=== PATIENT | male | born 1985 | race African-American/Black ===

== ENCOUNTER 2023-04-09 05:34 | Emergency (ER) | payer BC ==
[2023-04-09] MEDS ORDERED: NA CHLORIDE 0.9% 1,000 ML ONE (06:22)
[2023-04-09] MEDS ORDERED: DIAZEPAM 10 MG/2 ML INJ SYRINGE ONE (06:22)
[2023-04-09] MEDS ORDERED: METOCLOPRAMIDE 10 MG/2mL INJ ONE (06:22)
[2023-04-09] MEDS ORDERED: NA CHLORIDE 0.9% 50 ML ONE (06:27)
[2023-04-09] MEDS ORDERED: PROMETHAZINE INJ 25 MG/ML AMP ONE (06:38)
[2023-04-09] MEDS ORDERED: CHLORPROMAZINE 25 MG TAB PO ONE (06:43)
[2023-04-09 06:57] LABS: Absolute Lymphocytes (CBC) 1.9 K/uL (0.7-4.9); Hematocrit 47.2 % (39.6-49.0); Lymphocytes % 17.8 % (15.3-44.8); MCV 87.5 fL (80-100); MPV 8.1 fL (7.6-11.3)
[2023-04-09 08:13] LABS: Potassium 4.2 mEq/L (3.5-5.1)
--- NOTE | 2023-04-09 08:20 | EDPHYS ---
Physician Documentation [facility] Name: Jd Cabral Age: 37 yrs Sex: Male : 1985 Arrival Date: 04/09/2023 Time: 05:34 Bed 4 Private MD: ED Physician Nick Lake HPI: 04/09 06:31 This 37 yrs old Black Male presents to ER via Ambulatory with complaints of HICCUPS sp4 X4DAYS. 08:07 Patient states he had dental extraction left lower tooth #16 and implant as well 4 days sp4 ago after that he has developed persistent hiccups. Patient was in and out of the emergency department yesterday was given intramuscular Thorazine which stopped hiccups but hiccups have recurred. Patient states he has not been able to sleep for the past 4 days and is very fatigued. Patient's dentist has attempted to stop pickups via p.o. gabapentin, p.o. Zofran, p.o. Reglan, and p.o. baclofen, with much success. Patient also takes [place] 7.5 as needed for pain and clindamycin p.o. antibiotic. . Historical: - Allergies: 06:00 No Known Allergies; kd3 - Home Meds: 08:50 None [Active]; jl7 - PMHx: 08:50 None; jl7 - PSHx: 08:50 Dental implant; jl7 - Immunization history:: Adult Immunizations up to date. - Social history:: Smoking status: Patient denies any tobacco usage or history of. - Family history:: not pertinent. ROS: 08:07 Constitutional: Negative for fever, chills, and weight loss, positive for persistent sp4 hiccups Eyes: Negative for injury, pain, redness, and discharge, ENT: Negative for injury, pain, and discharge, Neck: Negative for injury, pain, and swelling, Cardiovascular: Negative for chest pain, palpitations, and edema, Respiratory: Negative for shortness of breath, cough, wheezing, and pleuritic chest pain, Abdomen/GI: Negative for abdominal pain, nausea, vomiting, diarrhea, and constipation, positive for persistent hiccups Back: Negative for injury and pain, : Negative for injury, bleeding, discharge, and swelling, MS/Extremity: Negative for injury and deformity, Skin: Negative for injury, rash, and discoloration, Neuro: Negative for headache, weakness, numbness, tingling, and seizure, Psych: Negative for depression, anxiety, Allergy/Immunology: Negative for hives, rash, and allergies Endocrine: Negative for neck swelling, polydipsia, polyuria, polyphagia, and weight changes Hematologic/Lymphatic: Negative for swollen nodes, abnormal bleeding, and unusual bruising Exam: 08:07 Constitutional: This is a well developed, well nourished patient who is awake, alert, sp4 and in no acute distress. Head/Face: Normocephalic, atraumatic. Eyes: Pupils equal round and reactive to light, extra-ocular motions intact. Lids and lashes normal. Conjunctiva and sclera are not injected. Cornea within normal limits. Periorbital areas with no swelling, redness, or edema. ENT: Nares patent. No nasal discharge, no septal abnormalities noted. Tympanic membranes are normal and external auditory canals are clear. Oropharynx with no redness, swelling, or masses, exudates, or evidence of obstruction, uvula midline. Mucous membranes moist. Neck: Trachea midline, no thyromegaly or masses palpated, and no cervical lymphadenopathy. Supple, full range of motion without nuchal rigidity, or vertebral point tenderness. No Meningismus. Chest/axilla: Normal chest wall appearance and motion. Nontender with no deformity. No lesions are appreciated. Cardiovascular: Regular rate and rhythm with a normal S1 and S2. No gallops, murmurs, or rubs. Normal PMI, no JVD. No pulse deficits. Respiratory: Lungs have equal breath sounds bilaterally, clear to auscultation and percussion. No rales, rhonchi or wheezes noted. No increased work of breathing, no retractions or nasal flaring. Abdomen/GI: Soft, non-tender, with normal bowel sounds. No distension or tympany. No guarding or rebound. No evidence of tenderness throughout. Persistent singultus Back: No spinal tenderness. No costovertebral tenderness. Skin: Warm, dry with normal turgor. Normal color with no rashes, no lesions, and no evidence of cellulitis. MS/ Extremity: Pulses equal, no cyanosis. Neurovascular intact. Full, normal range of motion. Neuro: Awake and alert, GCS 15, oriented to person, place, time, and situation. Cranial nerves II-XII grossly intact. Motor strength 5/5 in all extremities. Sensory grossly intact. Psych: Awake, alert, with orientation to person, place and time. Behavior, mood, and affect are within normal limits Vital Signs: 05:56 Pulse 84; Resp 19; Temp 98.6(TE); Pulse Ox 100% ; Weight 99.79 kg; Height 6 ft. 3 in. ; kd3 05:57 BP 134 / 98; kd3 06:56 BP 134 / 98; Pulse 89; Resp 16; Pulse Ox 99% on R/A; jb4 07:39 BP 148 / 93; Pulse 95; Resp 14; Pulse Ox 99% on R/A; Pain 0/10; ss 09:56 BP 123 / 72; Pulse 96; Resp 14; Pulse Ox 100% on R/A; ss 10:59 BP 133 / 85; Pulse 92; Resp 16; Pulse Ox 99% on R/A; ss 05:56 Body Mass Index 27.50 (99.79 kg, 190.5 cm) kd3 07:39 Pain Scale: Adult ss MDM: 06:10 Patient medically screened. sp4 08:17 Differential Diagnosis Acute singultus. Data reviewed: vital signs, nurses notes, lab sp4 test result(s), radiologic studies, plain films. ED course: After IV Valium, IV Reglan, and IV Phenergan, also p.o. Thorazine, hiccups have resolved. ED course: Patient's dentist Dr. Martinez requested that patient is monitored here for several hours. Patient care was transferred to Dr. Lake for further monitoring patient may be discharged presumptively at 10 AM if there is no recurrence of hiccups. 08:28 Management of patient was discussed with the following: Field Examiner: Dr Martinez. I ms3 considered the following discharge prescriptions or medication management in the emergency department Medications were administered in the Emergency Department. See MAR. Counseling: I had a detailed discussion with the patient and/or guardian regarding: the historical points, exam findings, and any diagnostic results supporting the discharge/admit diagnosis, the need for outpatient follow up, to return to the emergency department if symptoms worsen or persist or if there are any questions or concerns that arise at home. Transition of care: Care assumed from Amrik Pizarro MD. 08:31 Response to treatment: the patient's symptoms have resolved after treatment, Hiccups ms3 have resolved. Pt a/o x4, and as a result, I will discharge patient. Special discussion: I discussed with the patient/guardian in detail that at this point there is no indication for admission to the hospital. It is understood, however, that if the symptoms persist or worsen the patient needs to return immediately for re-evaluation. 09:11 ED course: At discharge patient hiccups returned. Discussed case with Dr Wen and ms3 he recommends MRI stroke protocol. If negative patient can be discharged.. 04/09 06:27 Order name: Basic Metabolic Panel; Complete Time: 08:17 sp4 04/09 06:27 Order name: CBC with Diff; Complete Time: 08:10 sp4 04/09 06:27 Order name: XRAY Chest (1 view) 4 04/09 10:25 Order name: Brain Wo Cont; Complete Time: 11:00 EDMS 04/09 05:58 Order name: Saline Lock; Complete Time: 06:28 sp4 04/09 06:27 Order name: IV Saline Lock; Complete Time: 06:44 sp04/09 06:27 Order name: Labs collected and sent; Complete Time: 06:44 sp4 04/09 06:27 Order name: O2 Per Protocol; Complete Time: 06:44 sp04/09 06:27 Order name: O2 Sat Monitoring; Complete Time: 06:44 sp04/09 07:05 Order name: Misc. Order: REDRAW GREEN TOP; Complete Time: 07:39 rv1 Administered Medications: 06:28 Drug: metoCLOPramide IVP 20 mg Route: IVP; Site: left antecubital; jb4 07:39 Follow up: Response: No adverse reaction ss 06:28 Drug: Diazepam IVP 5 mg Route: IVP; Site: left antecubital; jb4 07:39 Follow up: Response: No adverse reaction ss 06:29 Not Given (MEdication unavailablee): Prochlorperazine IVP 10 mg IVP once jb4 06:29 Drug: NS 0.9% IV 1000 ml Route: IV; Rate: 1 bolus; Site: left antecubital; jb4 07:39 Follow up: IV Status: Completed infusion; IV Intake: 1000ml ss 06:44 Drug: Promethazine IVP 25 mg Route: IVP; Site: left antecubital; as6 07:39 Follow up: Response: No adverse reaction ss 06:44 Drug: thorazine 25 mg Route: PO; jb4 07:39 Follow up: Response: No adverse reaction ss 09:53 Drug: Midazolam IVP or IV 2 mg Route: IVP; Site: left antecubital; ss Disposition Summary: 04/09/23 11:04 Discharge Ordered Location: Home(04/09/23 11:04) ms3 Condition: Stable(04/09/23 11:04) ms3 Diagnosis - Hiccough(04/09/23 11:04) ms3 Followup: ms3 - With: Private Physician - When: 2 - 3 days - Reason: Recheck today's complaints Followup: ms3 - With: Hayden Wen MD - When: 2 - 3 days - Reason: Recheck today's complaints Discharge Instructions: - Discharge Summary Sheet ms3 - Hiccups ms3 Forms: - Medication Reconciliation Form ms3 - Thank You Letter ms3 - Antibiotic Education ms3 - Prescription Opioid Use ms3 Prescriptions: - Chlorpromazine 25 mg Oral Tablet - take 1 tablet by ORAL route every 8 hours; 30 tablet; Refills: 0, Product ms3 Selection Permitted Signatures: Dispatcher [employer] Ayanna Wagner RN RN Raman Briceño RN RN slim4 Sanjana Santoro RN RN jl7 Nick Lake DO DO ms3 Tejas Alfaro RN RILEY as6 Maura Beyer RN RN kd3 Ramandeep Sawyer rv1 Amrik Pizarro MD MD sp4 Corrections: (The following items were deleted from the chart) 08:21 08:20 Home sp4 sp4 08:21 08:20 new sp4 sp4 08:21 08:20 have improved sp4 sp4 08:21 08:20 Stable sp4 sp4 08:21 08:20 Acute singultus, persistent hiccups sp4 sp4 09:09 08:27 Home ms3 ms3 09:09 08:27 Stable ms3 ms3 09:09 08:27 Hiccough ms3 ms3 09:09 08:27 Elevated blood-pressure reading, without diagnosis of hypertension ms3 ms3 10:25 09:10 MR STROKE PROTOCOL+MRI.RAD.BRZ ordered. EDMS EDMS
--- NOTE | 2023-04-09 08:20 | ER ---
Nurse's Notes [facility] Name: Jd Cabral Age: 37 yrs Sex: Male : 1985 Arrival Date: 04/09/2023 Time: 05:34 Bed 4 Private MD: Diagnosis: Hiccough Presentation: 04/09 05:57 Chief complaint: Patient states: I have had the hiccups since morning. kd3 Saturday i had a dental implant done. I have been to an urgent care and another ER. The oral surgeon, Dr. martinez, told him that if it had continued to go to the ER again, so that's why we are here this morning.. I cannot keep anything down or sleep. Coronavirus screen: Vaccine status: Patient reports receiving the 2nd dose of the covid vaccine. Ebola Screen: No symptoms or risks identified at this time. Initial Sepsis Screen: Does the patient meet any 2 criteria? No. Patient's initial sepsis screen is negative. Does the patient have a suspected source of infection? No. Patient's initial sepsis screen is negative. Risk Assessment: Do you want to hurt yourself or someone else? Patient reports no desire to harm self or others. Onset of symptoms was March 05, 2023. 05:57 Method Of Arrival: Ambulatory kd3 05:57 Acuity: CARLOS 3 kd3 Triage Assessment: 06:00 General: Appears uncomfortable, Behavior is calm, cooperative. Pain: Complains of pain kd3 in diaphragm. Historical: - Allergies: 06:00 No Known Allergies; kd3 - Home Meds: 08:50 None [Active]; jl7 - PMHx: 08:50 None; jl7 - PSHx: 08:50 Dental implant; jl7 - Immunization history:: Adult Immunizations up to date. - Social history:: Smoking status: Patient denies any tobacco usage or history of. - Family history:: not pertinent. Screenin:40 [facility] ED Fall Risk Assessment (Adult) History of falling in the last 3 months, ss including since admission No falls in past 3 months (0 pts). Abuse screen: Denies threats or abuse. Denies injuries from another. Nutritional screening: No deficits noted. Tuberculosis screening: Never had TB. Assessment: 06:00 General: Appears in no apparent distress. uncomfortable, Behavior is calm, cooperative, jb4 appropriate for age, PT reports uncontrollable hiccups for the past 4 days, has seen multiple providers and has had no relief.. Pain: Complains of pain in abdomen Pain does not radiate. Pain currently is 7 out of 10 on a pain scale. Neuro: Level of Consciousness is awake, alert, obeys commands, Oriented to person, place, time, situation. Cardiovascular: Patient's skin is warm and dry. Respiratory: Airway is patent Respiratory effort is even, unlabored, Respiratory pattern is regular, symmetrical. GI: Abdomen is flat, non-distended. : No signs and/or symptoms were reported regarding the genitourinary system. EENT: No signs and/or symptoms were reported regarding the EENT system. Derm: Skin is intact, Skin is pink, warm \T\ dry. Musculoskeletal: Circulation, motion, and sensation intact. Range of motion: intact in all extremities. 06:56 Reassessment: Patient appears in no apparent distress at this time. Patient and/or jb4 family updated on plan of care and expected duration. Pain level reassessed. Patient is alert, oriented x 3, equal unlabored respirations, skin warm/dry/pink. 07:40 General: Appears in no apparent distress. comfortable, Behavior is calm, cooperative, ss Pt is resting at this time with his eyes closed. RR even and unlabored. Parents remain at bedside. Went into room for lab draw and patient awakens easily with verbal stimuli. chemistry recollected and sent at this time. Lights dimmed for comfort. Call light within reach. Derm: Skin is intact, is healthy with good turgor, Skin is pink, warm \T\ dry. normal. Musculoskeletal: Range of motion: Swelling absent. 08:39 Reassessment: Patient appears in no apparent distress at this time. Patient denies pain ss at this time. Patient states feeling better. Patient states symptoms have improved. 08:46 Reassessment: Attempted to discharge pt, removed IV, assisted to bathroom via jl7 wheelchair and pt began hiccuping again Dr. Lake notified and gave VO to hold discharge. 08:50 Reassessment: Pt reports recent dental implant pre-hiccups. Hiccups began post jl7 procedure with conscious sedation. 09:55 Reassessment: Versed given just prior to transportation to MRI as ordered by Dr. Lake to help with hiccups. Pt drowsy, but able to communicate verbally with staff. RR even and unlabored. Hiccups still noted at this time every 5-10 seconds. 11:00 Reassessment: Patient appears in no apparent distress at this time. MRI results back. ss Awaiting disposition. Vital Signs: 05:56 Pulse 84; Resp 19; Temp 98.6(TE); Pulse Ox 100% ; Weight 99.79 kg; Height 6 ft. 3 in. ; kd3 05:57 BP 134 / 98; kd3 06:56 BP 134 / 98; Pulse 89; Resp 16; Pulse Ox 99% on R/A; jb4 07:39 BP 148 / 93; Pulse 95; Resp 14; Pulse Ox 99% on R/A; Pain 0/10; ss 09:56 BP 123 / 72; Pulse 96; Resp 14; Pulse Ox 100% on R/A; ss 10:59 BP 133 / 85; Pulse 92; Resp 16; Pulse Ox 99% on R/A; ss 05:56 Body Mass Index 27.50 (99.79 kg, 190.5 cm) kd3 07:39 Pain Scale: Adult ss ED Course: 05:38 Patient arrived in ED. ag3 05:57 Amrik Pizarro MD is Attending Physician. sp4 06:00 Triage completed. kd3 06:00 Arm band placed on right wrist. kd3 06:38 XRAY Chest (1 view) In Process Unspecified. EDMS 06:44 Basic Metabolic Panel Sent. as6 06:44 CBC with Diff Sent. as6 06:55 Raman Taylor, RN is Primary Nurse. jb4 07:40 Patient has correct armband on for positive identification. ss 07:59 Attending Physician role handed off by Amrik Pizarro MD ms3 07:59 Nick Lake DO is Attending Physician. ms3 08:19 Josh Martinez DDS is Referral Physician. sp4 08:39 No provider procedures requiring assistance completed. IV discontinued, intact, ss bleeding controlled, No redness/swelling at site. Pressure dressing applied. 09:54 Inserted saline lock: 22 gauge in left antecubital area, using aseptic technique. ss 10:25 Brain Wo Cont In Process Unspecified. EDMS 11:03 Hayden Wen MD is Referral Physician. ms3 Administered Medications: 06:28 Drug: metoCLOPramide IVP 20 mg Route: IVP; Site: left antecubital; jb4 07:39 Follow up: Response: No adverse reaction ss 06:28 Drug: Diazepam IVP 5 mg Route: IVP; Site: left antecubital; jb4 07:39 Follow up: Response: No adverse reaction ss 06:29 Not Given (MEdication unavailablee): Prochlorperazine IVP 10 mg IVP once jb4 06:29 Drug: NS 0.9% IV 1000 ml Route: IV; Rate: 1 bolus; Site: left antecubital; jb4 07:39 Follow up: IV Status: Completed infusion; IV Intake: 1000ml ss 06:44 Drug: Promethazine IVP 25 mg Route: IVP; Site: left antecubital; as6 07:39 Follow up: Response: No adverse reaction ss 06:44 Drug: thorazine 25 mg Route: PO; jb4 07:39 Follow up: Response: No adverse reaction ss 09:53 Drug: Midazolam IVP or IV 2 mg Route: IVP; Site: left antecubital; ss Medication: 07:40 VIS not applicable for this client. ss Intake: 07:39 IV: 1000ml; Total: 1000ml. ss Outcome: 08:20 Discharge ordered by . sp4 08:27 Discharge ordered by . ms3 11:04 Discharge ordered by . ms3 11:36 Patient left the ED. zm Signatures: Dispatcher [employer] EDMS Ayanna Wallace RN RN ss Raman Taylor RN RN jb4 Sanjana Santoro RN RN lacy7 Jessica Brito Nick Escobar DO DO ms3 Tejas Alfaro RN RN as6 Maura Beyer RN RN wanda3 Donna Nair Sergey, MD MD sp4
[2023-04-09] MEDS ORDERED: MIDAZOLAM HCL 2 MG/2 ML INJ ONE (09:55)
--- NOTE | 2023-04-09 10:31 | RAD REPORT ---
EXAM DESCRIPTION: X-ray single view chest. CLINICAL HISTORY: 37 years Male, COUGH COMPARISON: None. TECHNIQUE: Single portable x-ray view of the chest performed on 04/09/2023 at 6:33 AM FINDINGS: The lungs are well expanded and are clear. There is no evidence of a pneumothorax. The cardiac silhouette is prominent and may be accentuated by the portable technique. The mediastinal contours are normal. No acute osseous abnormality is identified. No acute soft tissue abnormalities are seen. Lines and tubes: None. Free air: None IMPRESSION: No evidence of acute intrathoracic disease. Electronically signed by: Abril Mejía DO 04/09/2023 6:46 AM CDT Due to temporary technical issues with the PACS/Fluency reporting system, reports are being signed by the in house radiologists without review as a courtesy to insure prompt reporting. The interpreting radiologist is fully responsible for the content of the report.
--- NOTE | 2023-04-09 10:51 | RAD REPORT ---
EXAM DESCRIPTION: MRI - Brain Wo Cont - 04/09/2023 10:23 am CLINICAL HISTORY: Hiccups Headache, drowsiness, involuntary motion. COMPARISON: No comparisons TECHNIQUE: Multi-sequence, multiplanar MR imaging of the brain was performed without contrast. FINDINGS: Mild motion degradation is present No intracranial hemorrhage, hydrocephalus or extra-axia l fluid collections. No edema or shift of midline structures. No findings to suspect brain mass. DWI is negative for acute CVA. Midline structures are normally formed. Mastoid air cells and paranasal sinuses are clear. IMPRESSION: No acute or pathologic intracranial abnormalities. Examination is mildly degraded by motion artifact.
[2023-04-09 11:58] VITALS: TEMP 98.6
[2023-04-09 12:06] VITALS: BP 133/85; O2SAT 99
== END 2023-04-09 11:36 | disposition home or self-care (01) ==
LOC: ER 05:34
DX: R06.6 Hiccough (principal); Z98.818 Other dental procedure status
CPT/HCPCS: 96361; 85025; 80048; 36415; 71045; 70551; 96375; 96374; 99284; J2550; Q0161; J2765; J2250; J3360; J7030

== ENCOUNTER 2023-04-09 15:30 | Inpatient (IN) | payer BC ==
--- OUTSIDE RECORDS SUMMARY | 2023-04-09 15:33 | XMS REPORT | Continuity of Care Document ---
:1985 Author Organization [facility] t Address [address] [place] [address] [address] [place] [address] Care Team Providers Name Role Phone NABIL MENDOZA Attending Clinician Unavailable Hernando Attending Clinician Unavailable Hernando Admitting Clinician Unavailable Payers Payer Name Policy Type Policy Number Effective Date Expiration Date [employer] - NAP - [id number] 2012 00:00:00 CHOICE (POS II) Problems This patient has no known problems. Allergies, Adverse Reactions, Alerts This patient has no known allergies or adverse reactions. Medications This patient has no known medications. Procedures This patient has no known procedures. Encounters Start End Encounter Admission Attending Care Care Encounter Source Date/Time Date/Time Type Type Clinicians Facility Department ID 2023-04-07 2023-04-07 Emergency E NABIL MENDOZA FB FB [id number] FB 09:46:00 14:42:00 2020-10-19 2020-10-19 Outpatient [id number] [place] 02:23:00 02:23:00 [id number] Results This patient has no known results.
[2023-04-09] MEDS ORDERED: HALOPERIDOL LACT 5 MG/ML INJ ONE (15:59)
[2023-04-09] MEDS ORDERED: MAGNESIUM SULFATE 1 gm IVPB 1 GM/100 ML BAG IV ONE (16:09)
[2023-04-09] MEDS ORDERED: NA CHLORIDE 0.9% 1,000 ML ONE (16:09)
[2023-04-09] MEDS ORDERED: KETAMINE HCL IN 0.9 % NACL 50 MG/5 ML SYRINGE IV ONE (17:57)
--- NOTE | 2023-04-09 18:19 | RAD REPORT ---
EXAM DESCRIPTION: CT - Chest Abdomen Pelvis W Cont - 04/09/2023 6:00 pm CLINICAL HISTORY: Chest and abdominal pain/intractable hiccups COMPARISON: none TECHNIQUE: Computed axial tomography of the chest, abdomen and pelvis was obtained. 100 cc Isovue-30 0 was administered intravenously. Oral contrast was not requested. This limits evaluation of bowel. All CT scans are performed using dose optimization technique as appropriate and may include automated exposure control or mA/KV adjustment according to patient size. FINDINGS: There is poor opacification of the vessels probably related to the timing of the contrast administration being altered due to the intractable hiccups. This does limit evaluation of mediastinu m, solid organs, nayeli and vessels. Many of the images are degraded by the motion artifact. Lungs are clear No mediastinal or hilar lymphadenopathy. No pleural effusion. No pericardial effusion. The wall of the distal esophagus appears thickened Liver, spleen, pancreas, adrenals and kidneys appear unremarkable No evidence of diverticulitis IMPRESSION: Wall of the distal esophagus appears thickened which may be secondary to incomplete dist ention or pathology such as inflammation
[2023-04-09] MEDS ORDERED: MAGNES/ALUMIN/SIMET 30ML UCUP ONE (18:34)
[2023-04-09] MEDS ORDERED: PANTOPRAZOLE 40 MG INJ ONE (18:34)
[2023-04-09] MEDS ORDERED: LIDOCAINE VISCOUS 2% SOLN 15 ML UDC ONE (18:35)
--- NOTE | 2023-04-09 18:41 | EDPHYS ---
Physician Documentation [facility] Name: Jd Cabral Age: 37 yrs Sex: Male : 1985 Arrival Date: 04/09/2023 Time: 15:30 Bed 7 Private MD: ED Physician Andrés Lofton HPI: 04/09 15:56 This 37 yrs old Male presents to ER via Ambulatory with complaints of HICCUPS. rn 15:56 Pt present for 3rd visit for hiccups. 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 Medication has not really helped.. Onset: The symptoms/episode began/occurred 5 day(s) ago. Severity of symptoms: At their worst the symptoms were moderate in the emergency department the symptoms are unchanged. The patient has not experienced similar symptoms in the past. The patient has been recently seen by a physician:. Historical: - Allergies: 15:39 No Known Allergies; ss - Home Meds: 16:01 None [Active]; jl7 - PMHx: 16:01 None; jl7 - PSHx: 15:39 Dental implant; ss - Immunization history:: Client reports receiving the 2nd dose of the Covid vaccine. - Social history:: Smoking status: Patient denies any tobacco usage or history of. - Family history:: not pertinent. - Hospitalizations: : No recent hospitalization is reported. ROS: 15:56 Constitutional: Negative for fever, chills, and weight loss, Respiratory: Negative for rn shortness of breath, cough, wheezing, and pleuritic chest pain, Abdomen/GI: Negative for abdominal pain, diarrhea, and constipation. Exam: 15:56 Constitutional: This is a well developed, well nourished patient who is awake, alert, rn appears frustrated and hiccups every 3-5 seconds. Cardiovascular: Regular rate and rhythm. No pulse deficits. Respiratory: No increased work of breathing, no retractions or nasal flaring. Abdomen/GI: Soft, non-tender Skin: Warm, dry Neuro: Awake and alert, GCS 15 Vital Signs: 15:37 BP 142 / 92; Pulse 103; Resp 18; Temp 99(O); Pulse Ox 99% on R/A; Weight 99.79 kg; ss Height 6 ft. 3 in. ; Pain 9/10; 16:39 BP 119 / 72; Pulse 88; Resp 14; Pulse Ox 100% on R/A; ss 18:21 BP 137 / 81; Pulse 128; Resp 15; Pulse Ox 98% ; jl7 19:46 BP 120 / 50; Pulse Ox 98% on R/A; kl 15:37 Body Mass Index 27.50 (99.79 kg, 190.5 cm) ss 15:37 Pain Scale: Adult ss MDM: 15:36 Patient medically screened. rn 15:55 ED course: Put patient through breath stacking techniques and hiccups stopped. Will rn continue to observe and try low dose haldol as well. . 17:53 ED course: Consulted with Dr. Martinez, has been trying to help this man outpt, requests tornado chaser for intractable hiccoughs as patient is not able to eat or drink and required IV hydration during this last visit. Is now patient's 4th visit for this problem and family visibly concerned and distraught at the thought of going home again.. 18:38 Differential Diagnosis hiccups, dehydration, esophagitis. Data reviewed: vital signs, rn nurses notes, old medical records, radiologic studies, CT scan, and as a result, I will admit patient. Counseling: I had a detailed discussion with the patient and/or guardian regarding: the historical points, exam findings, and any diagnostic results supporting the discharge/admit diagnosis, radiology results, the need for further work-up and treatment in the hospital. Response to treatment: There is no appreciated change of the patient's symptoms at this time, and as a result, I will admit patient. 04/09 17:24 Order name: CT Chest, Abdomen, Pelvis - W/Contrast; Complete Time: 18:23 rn 04/09 16:00 Order name: IV Start; Complete Time: 16:35 rn Administered Medications: 15:55 Drug: HALdol (as decanoate) IM 2.5 mg Route: IM; Site: right deltoid; jl7 18:40 Follow up: Response: No adverse reaction; Marked relief of symptoms ss 16:15 Drug: NS 0.9% IV 1000 ml Route: IV; Rate: 1000 ml; Site: right forearm; jl7 16:15 Drug: Magnesium Sulfate IVPB 1 grams Route: IVPB; Infused Over: 1 hrs; Site: right jl7 forearm; 16:57 Follow up: IV Status: Completed infusion ss 17:50 Drug: Ketamine IVP 19.958 mg Route: IVP; Site: right forearm; jl7 18:00 Follow up: Response: No adverse reaction; No change in condition jl7 17:55 Drug: Ketamine IVP 10 mg Route: IVP; Site: right forearm; jl7 18:20 Follow up: Response: No adverse reaction; No change in condition jl7 18:40 Drug: Pantoprazole IVP 40 mg Route: IVP; Site: right antecubital; ss 19:19 Follow up: Response: No adverse reaction jl7 18:40 Drug: GI Cocktail without - (Maalox PO Suspension 30 ml, Lidocaine Mucous ss Membrane Liquid 2 % 15 ml) Route: PO; Disposition Summary: 04/09/23 18:40 Hospitalization Ordered Hospitalization Status: Observation rn Provider: Robinson Lofton rn Location: Telemetry/MedSurg (observation) rn Condition: Stable rn Problem: an ongoing problem rn Symptoms: are unchanged rn Bed/Room Type: Standard rn Room Assignment: [facility](04/09/23 19:21) Diagnosis - Hiccough - Intractable rn - Dehydration rn - Unable to tolerate PO nursery rn Instructions: - Discharge Summary Sheet rn - Hiccups rn Forms: - Medication Reconciliation Form rn - SBAR form rn Signatures: Dispatcher [employer] Nina Breen RN Andrés Vidal MD MD rn Smirch, Shelby, RN RN Sanjana Agosto RN RN jl7 Corrections: (The following items were deleted from the chart) 19:21 18:40 rn sharonda
--- NOTE | 2023-04-09 18:41 | ER ---
Nurse's Notes [facility] Name: Jd Cabral Age: 37 yrs Sex: Male : 1985 Arrival Date: 04/09/2023 Time: 15:30 Bed 7 Private MD: Diagnosis: Hiccough-Intractable;Dehydration;Unable to tolerate PO Presentation: 04/09 15:37 Chief complaint: Patient states: persistent hiccups x 5 days. Pt seen in ER earlier, ss hiccups stopped, but started back up again and the prescription is not helping. Coronavirus screen: Client denies travel out of the [place] in the last 14 days. Ebola Screen: Patient denies exposure to infectious person. Patient denies travel to an Ebola-affected area in the 21 days before illness onset. Initial Sepsis Screen: Does the patient meet any 2 criteria? No. Patient's initial sepsis screen is negative. Does the patient have a suspected source of infection? No. Patient's initial sepsis screen is negative. Risk Assessment: Do you want to hurt yourself or someone else? Patient reports no desire to harm self or others. Onset of symptoms was April 04, 2023. 15:37 Method Of Arrival: Ambulatory ss 15:37 Acuity: CARLOS 3 ss Historical: - Allergies: 15:39 No Known Allergies; ss - Home Meds: 16:01 None [Active]; jl7 - PMHx: 16:01 None; jl7 - PSHx: 15:39 Dental implant; ss - Immunization history:: Client reports receiving the 2nd dose of the Covid vaccine. - Social history:: Smoking status: Patient denies any tobacco usage or history of. - Family history:: not pertinent. - Hospitalizations: : No recent hospitalization is reported. Screenin:39 [facility] ED Fall Risk Assessment (Adult) History of falling in the last 3 months, ss including since admission No falls in past 3 months (0 pts). Abuse screen: Denies threats or abuse. Denies injuries from another. Nutritional screening: No deficits noted. Tuberculosis screening: Never had TB. Assessment: 15:39 General: Appears uncomfortable, Behavior is calm, cooperative, Denies fever, feeling ss ill. Pain: Complains of pain in chest Pain currently is 9 out of 10 on a pain scale. Pain began 5 days ago Is continuous. Neuro: Level of Consciousness is awake, alert, obeys commands, Oriented to person, place, time, situation. Cardiovascular: Capillary refill < 3 seconds is sluggish in bilateral fingers. Respiratory: Airway is patent Respiratory effort is even, unlabored, Respiratory pattern is regular, symmetrical. GI: Patient currently denies diarrhea, nausea, vomiting. Derm: Skin is pink, warm \T\ dry. normal. 16:41 Reassessment: Patient appears in no apparent distress at this time. Pt is resting at this time. Eyes closed. RR even and unlabored. 17:30 Reassessment: Patient appears in no apparent distress at this time. No changes from jl7 previously documented assessment. Patient and/or family updated on plan of care and expected duration. Pain level reassessed. Patient is alert, oriented x 3, equal unlabored respirations, skin warm/dry/pink. 18:30 Reassessment: Patient appears in no apparent distress at this time. No changes from jl7 previously documented assessment. Patient and/or family updated on plan of care and expected duration. Pain level reassessed. Patient is alert, oriented x 3, equal unlabored respirations, skin warm/dry/pink. Vital Signs: 15:37 BP 142 / 92; Pulse 103; Resp 18; Temp 99(O); Pulse Ox 99% on R/A; Weight 99.79 kg; ss Height 6 ft. 3 in. ; Pain 9/10; 16:39 BP 119 / 72; Pulse 88; Resp 14; Pulse Ox 100% on R/A; ss 18:21 BP 137 / 81; Pulse 128; Resp 15; Pulse Ox 98% ; jl7 19:46 BP 120 / 50; Pulse Ox 98% on R/A; kl 15:37 Body Mass Index 27.50 (99.79 kg, 190.5 cm) ss 15:37 Pain Scale: Adult ss ED Course: 15:31 Patient arrived in ED. ts1 15:31 Joseph Buck PA is PHCP. cp 15:32 Andrés Lofton MD is Attending Physician. cp 15:37 Ayanna Wallace, RILEY is Primary Nurse. ss 15:39 Triage completed. ss 15:39 Arm band placed on right wrist. ss 15:39 Patient has correct armband on for positive identification. Pulse ox on. NIBP on. ss 15:39 Patient maintains SpO2 saturation greater than 95% on room air. ss 16:00 Inserted saline lock: 20 gauge in right forearm, using aseptic technique. jl7 18:01 CT Chest, Abdomen, Pelvis - W/Contrast In Process Unspecified. EDMS 18:40 Robinson Lofton MD is Hospitalizing Provider. rn 19:18 Report given to RILEY TAMAYO. jl7 20:04 No provider procedures requiring assistance completed. Patient admitted, IV remains in kl place. Administered Medications: 15:55 Drug: HALdol (as decanoate) IM 2.5 mg Route: IM; Site: right deltoid; jl7 18:40 Follow up: Response: No adverse reaction; Marked relief of symptoms ss 16:15 Drug: NS 0.9% IV 1000 ml Route: IV; Rate: 1000 ml; Site: right forearm; jl7 16:15 Drug: Magnesium Sulfate IVPB 1 grams Route: IVPB; Infused Over: 1 hrs; Site: right jl7 forearm; 16:57 Follow up: IV Status: Completed infusion ss 17:50 Drug: Ketamine IVP 19.958 mg Route: IVP; Site: right forearm; jl7 18:00 Follow up: Response: No adverse reaction; No change in condition jl7 17:55 Drug: Ketamine IVP 10 mg Route: IVP; Site: right forearm; jl7 18:20 Follow up: Response: No adverse reaction; No change in condition jl7 18:40 Drug: Pantoprazole IVP 40 mg Route: IVP; Site: right antecubital; ss 19:19 Follow up: Response: No adverse reaction jl7 18:40 Drug: GI Cocktail without - (Maalox PO Suspension 30 ml, Lidocaine Mucous ss Membrane Liquid 2 % 15 ml) Route: PO; Medication: 15:39 VIS not applicable for this client. ss Outcome: 18:40 Decision to Hospitalize by Provider. rn 20:04 Admitted to Tele room 404, Report called to carlos barrera 20:04 Condition: stable 20:04 Discharge instructions given to patient, family, Instructed on the need for admit, Demonstrated understanding of instructions. 20:28 Patient left the ED. Signatures: Dispatcher [employer] Rabia Rock RN RN Andrés Lofton MD MD rn Smirch, Shelby, RN RN Joseph Buck PA PA cp Leal, Jahala RN RN jl7 Deedee Rueda PAS PAS ts1 Corrections: (The following items were deleted from the chart) 18:10 17:50 Ketamine IVP 0.2 mg/kg IVP in right antecubital jl7 jl7
--- NOTE | 2023-04-09 19:38 | P.HP ---
Certification for Inpatient Patient admitted to: Observation With expected LOS: <2 Midnights Patient will require the following post-hospital care: None Practitioner: I am a practitioner with admitting privileges, knowledge of patient current condition, hospital course, and medical plan of care. Services: Services provided to patient in accordance with Admission requirements found in Title 42 Section 412.3 of the Code of Federal Regulations Patient History Date of Service: 04/09/23 Reason for admission: Intractable hiccups, dehydration History of Present Illness: 37-year-old male who is otherwise healthy had a dental extraction left lower tooth #16 and implant 4 days ago and since then has had persistent hiccups every few seconds, he has now had 4 separate ED visits since then including 2 at our facility, he has been given medications including Thorazine, Haldol, gabapentin, Reglan, baclofen, Zofran, [place], ketamine without relief. His labs performed earlier today were unremarkable CT chest abdomen pelvis was performed to rule out any other acute causes of his intractable hiccups which showed some thickening of the distal esophagus which may be secondary to incomplete distention or pathology such as inflammation. He was given a GI cocktail as well as Protonix in the ED. Case was discussed with neurology during his visit earlier in the day at that time he had an MRI of his brain which was negative for acute findings, patient still actively hiccuping every couple of seconds unable to tolerate anything by mouth without regurgitation/vomiting shortly after. Will need to admit under observation for rehydration, further attempts at relief from his intractable hiccups. 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 moist/pink, EOMI, Sclerae nonicteric Neck: Supple, 2+ carotid pulse no bruit, No LAD, Without JVD or thyroid abnormality Respiratory: Clear to auscultation bilaterally, Normal air movement Cardiovascular: Regular rate/rhythm, Normal S1 S2 Gastrointestinal: Normal bowel sounds, No tenderness Musculoskeletal: No tenderness Integumentary: No rashes Neurological: Normal gait, Normal speech, Normal strength at 5/5 x4 extr, Normal tone, Normal affect Lymphatics: No axilla or inguinal lymphadenopathy Assessment and Plan - Plan Assessment: Intractable hiccups, dehydration Plan: Intractable hiccups, dehydration Thus far patient has received Thorazine, ketamine, Reglan, Haldol, baclofen, Zofran without relief, also have attempted breathing exercises, multiple home remedies. He still having hiccups every few seconds, unable to tolerate anything significant by mouth and if he does will soon after regurgitate/vomit. MRI of the brain was performed which was negative for acute findings CT chest abdomen pelvis was performed today which showed some distal esophageal thickening, will treat patient with IV Protonix, IV fluids, as needed Haldol/Reglan/Benadryl. Consult with neurology/OMFS. DVT PPX: Code status: Discharge Plan: Home Plan to discharge in: 24 Hours - Advance Directives Does patient have a Living Will: No Does patient have a Durable POA for Healthcare: No - Code Status/Comfort Care Code Status Assessed: Yes (Full code) Critical Care: No Time Spent Managing Pts Care (In Minutes): 55
[2023-04-09] MEDS ORDERED: ONDANSETRON 4 MG/2 ML VIAL IV PRN (21:02)
[2023-04-09] MEDS ORDERED: SODIUM CHLORIDE 0.9% 10ML INJ IV PRN (21:02)
[2023-04-09] MEDS: BACLOFEN 10 MG TAB PO SCH (21:53)
[2023-04-09] MEDS: GABAPENTIN 300 MG CAP PO SCH (21:53)
[2023-04-09] MEDS: PANTOPRAZOLE 40 MG INJ IVP SCH (21:53)
[2023-04-09] MEDS: Ringers Lactate 1,000 ML IV SCH (21:53)
[2023-04-09] MEDS: HALOPERIDOL LACT 5 MG/ML INJ IV PRN (22:01)
[2023-04-10] MEDS: Ringers Lactate 1,000 ML IV SCH ×3 (04:56→20:15)
[2023-04-10] MEDS: HALOPERIDOL LACT 5 MG/ML INJ IV PRN ×3 (04:57→21:57)
[2023-04-10 06:29] LABS: Absolute Lymphocytes (CBC) 1.7 K/uL (0.7-4.9); Lymphocytes % 20.7 % (15.3-44.8); MCV 87.7 fL (80-100); MPV 7.5 fL (7.6-11.3); RBC Red Blood Cell Count 4.79 M/uL (4.33-5.43)
[2023-04-10 06:46] LABS: Magnesium 2.1 mg/dL (1.6-2.4); Potassium 3.8 mEq/L (3.5-5.1)
--- NOTE | 2023-04-10 07:24 | P.PN ---
Date of Service: 04/10/23 Subjective: Hiccups remain the same, not improving claims moving seems to exacerbate the hiccups tolerating liquids ROS: 10 point ROS as noted above, otherwise negative Physical Exam: GEN: Alert, oriented, NAD HEENT: Normal conjunctiva, sclera anicteric CV: Regular rate and rhythm, no edema Pulm: Nonlabored respirations on room air ABD: Soft, nontender, nondistended MSK: No joint tenderness Neuro: Normal speech, normal affect vitals reviewed Problem List: Intractable hiccups, dehydration GERD suspect intractable hiccups secondary to spasms /clonus of diaphragm after anesthesia. Does report 1 month of needing daily tums CT noted disteal esophageal thickening GI consulted 04/10 plan for EGD 04/11 patient has received Thorazine, ketamine, Reglan, Haldol, baclofen, Zofran without relief, also have attempted breathing exercises, multiple home remedies. He still having hiccups every few seconds, unable to tolerate anything significant by mouth and if he does will soon after regurgitate/vomit. MRI brain 04/09 - negative for acute findings CT chest 04/09 - showed some distal esophageal thickening Continue IV Protonix Continue IVF continue baclofen/gabapentin - baclofen dose increased from 5 to 10mg on 04/09 Haldol/Reglan/Benadryl as needed Neurology/OMFS consulted Code: Full Dispo: Home 1-2 days
[2023-04-10] MEDS: GABAPENTIN 300 MG CAP PO SCH ×3 (07:59→21:17)
[2023-04-10] MEDS: BACLOFEN 10 MG TAB PO SCH ×2 (07:59→14:36)
[2023-04-10] MEDS: PANTOPRAZOLE 40 MG INJ IVP SCH ×2 (07:59→21:17)
[2023-04-10] MEDS ORDERED: POTASSIUM CL SA 10 MEQ TAB PO ONE (09:44)
[2023-04-10] MEDS: MORPHINE 2 MG/ML SYR IV PRN (18:36)
[2023-04-10] MEDS ORDERED: DIVALPROEX DR 500MG TAB PO ONE (19:00)
[2023-04-10] MEDS: SUCRALFATE 1 GM TABLET PO SCH (20:15)
[2023-04-11] MEDS: MORPHINE 2 MG/ML SYR IV PRN ×2 (01:13→05:59)
[2023-04-11] MEDS: DIPHENHYDRAMINE 50 MG/ML VIAL IV PRN ×2 (01:13→06:02)
[2023-04-11] MEDS: HALOPERIDOL LACT 5 MG/ML INJ IV PRN ×3 (04:31→21:08)
[2023-04-11] MEDS: Ringers Lactate 1,000 ML IV SCH ×4 (04:36→21:02)
[2023-04-11] MEDS: METOCLOPRAMIDE 10 MG/2mL INJ IV PRN (05:59)
[2023-04-11 06:16] LABS: Absolute Lymphocytes (CBC) 2.2 K/uL (0.7-4.9); Hematocrit 43.6 % (39.6-49.0); Lymphocytes % 22.3 % (15.3-44.8); MCV 88.2 fL (80-100); MPV 7.5 fL (7.6-11.3); RBC Red Blood Cell Count 4.94 M/uL (4.33-5.43)
[2023-04-11 06:31] LABS: Magnesium 1.9 mg/dL (1.6-2.4); Potassium 3.9 mEq/L (3.5-5.1)
--- NOTE | 2023-04-11 07:19 | P.PN ---
Date of Service: 04/11/23 Subjective: hiccups persist, some relief noted with haldol states pain started to get worse last night - epigastric no vomiting / diarrhea ROS: 10 point ROS as noted above, otherwise negative Physical Exam: GEN: Alert, oriented, uncomfortable appearing, hiccups q~6sec HEENT: Normal conjunctiva, sclera anicteric CV: Regular rate and rhythm, no edema Pulm: Nonlabored respirations on room air ABD: Soft, mild epigastric tenderness, nondistended Neuro: Normal speech, normal affect vitals reviewed Problem List: Intractable hiccups, dehydration GERD suspect intractable hiccups secondary to spasms /clonus of diaphragm after medication. Does report 1 month of needing daily tums, CT noted distal esophageal thickening suspect component of esophagitis / GERD contributing GI consulted 04/10 NPO, plan for EGD 04/11 patient has received Thorazine, ketamine, Reglan, Haldol, baclofen, Zofran without relief, also have attempted breathing exercises, multiple home remedies. He's still having hiccups every few seconds, unable to tolerate anything significant by mouth able to get some relief/rest last night with haldol / depakote hiccups resolve while asleep, return once awake MRI brain 04/09 - negative for acute findings CT chest 04/09 - showed some distal esophageal thickening Continue IV Protonix Continue IVF continue gabapentin/carafate baclofen dose increased from 5 to 10mg on 04/09; DC 04/10 Haldol/Reglan/Benadryl as needed Neurology/OMFS consulted Code: Full Dispo: Home 1-2 days
[2023-04-11] MEDS: SUCRALFATE 1 GM TABLET PO SCH ×4 (07:30→21:07)
[2023-04-11 07:45] LABS: Albumin 3.2 g/dL (3.4-5.0); Bilirubin Direct 0.2 mg/dL (0-0.2); Bilirubin Indirect, Calculated 0.3 (0.2-0.8); Bilirubin Total 0.5 mg/dL (0.2-1.0); Protein, Total 7.1 g/dL (6.4-8.2)
[2023-04-11] MEDS: GABAPENTIN 300 MG CAP PO SCH ×3 (08:00→21:07)
[2023-04-11] MEDS: PANTOPRAZOLE 40 MG INJ IVP SCH ×2 (08:56→19:35)
[2023-04-11] MEDS ORDERED: Ringers Lactate 1,000 ML IV ONE (12:35)
[2023-04-11] MEDS ORDERED: propofoL 200 MG/20 ML VIAL IV ONE ×2 (13:01→13:31)
[2023-04-11] MEDS ORDERED: LIDOCAINE 1% MPF 5 ML VIAL ONE (13:01)
[2023-04-11] MEDS: SIMETHICONE 80 MG TAB PO SCH ×2 (14:30→21:08)
[2023-04-11] MEDS ORDERED: GOLYTELY 4000 ML PO SCH (16:00)
[2023-04-11] MEDS ORDERED: MAGNESIUM CITRATE 300 ML BOT PO SCH (16:00)
[2023-04-11] MEDS: LIDOCAINE VISCOUS 2% SOLN 15 ML UDC PO PRN (19:32)
[2023-04-11] MEDS: MAGNES/ALUMIN/SIMET 30ML UCUP PO PRN (19:32)
[2023-04-11] MEDS: DIPHENHYDRAMINE 12.5MG/5ML LIQ PO PRN (19:33)
[2023-04-11] MEDS ORDERED: DIVALPROEX DR 500MG TAB PO SCH (21:00)
[2023-04-11] MEDS: ENSURE HIGH PROTEIN 237 ML CAN PO SCH (21:00)
[2023-04-11] MEDS: Rifaximin 550 MG Tab PO SCH (23:59)
[2023-04-12] MEDS: MORPHINE 2 MG/ML SYR IV PRN ×2 (01:09→08:33)
[2023-04-12] MEDS: DIPHENHYDRAMINE 50 MG/ML VIAL IV PRN (01:09)
[2023-04-12] MEDS: HALOPERIDOL LACT 5 MG/ML INJ IV PRN ×3 (03:06→22:18)
[2023-04-12] MEDS: Ringers Lactate 1,000 ML IV SCH (05:02)
[2023-04-12 05:26] LABS: Bilirubin Total 0.5 mg/dL (0.2-1.0); Magnesium 1.8 mg/dL (1.6-2.4); Phosphorus 3.1 mg/dL (2.5-4.9); Potassium 3.7 mEq/L (3.5-5.1); Protein, Total 6.4 g/dL (6.4-8.2)
--- NOTE | 2023-04-12 07:19 | P.PN ---
Date of Service: 04/12/23 Subjective: Did not tolerate food yesterday, vomited shortly after, +nausea states he can tolerate liquids / pills some short relief with haldol less severe hiccups, frequency about the same ROS: 10 point ROS as noted above, otherwise negative Physical Exam: GEN: Alert, oriented, hiccups q~6sec HEENT: Normal conjunctiva, sclera anicteric CV: Regular rate and rhythm, no edema Pulm: Nonlabored respirations on room air ABD: Soft, mild epigastric tenderness, nondistended Neuro: Normal speech, normal affect vitals reviewed Problem List: Intractable hiccups, dehydration Esophagitis Mild gastritis Hiatal Hernia GERD suspect intractable hiccups secondary to increased gas formation in stomach/intestines Does report 1 month of needing daily tums, CT noted distal esophageal thickening suspect component of esophagitis / GERD contributing GI consulted 04/10 EGD performed 04/11 - showed esophagitis, mild gastritis, and hiatal hernia. Dr. Barroso noted significant amount of bubbles/gas/air Continue simethicone, rifaxamin; reglan PRN; s/p golytely continue protonix, carafate patient has received Thorazine, ketamine, Reglan, Haldol, baclofen, Zofran without relief, also have attempted breathing exercises, multiple home remedies. hiccups resolve while asleep, return once awake MRI brain 04/09 - negative for acute findings CT chest 04/09 - showed some distal esophageal thickening dc gabapentin, baclofen, depakote depakote DC 04/12 Haldol/Reglan/Benadryl as needed Neurology/OMFS consulted Code: Full Dispo: Home 2-3 days Patients family wishes to talk to Dr. Barroso to discuss further treatment/plan family may want to initiate transfer to [facility]
[2023-04-12] MEDS ORDERED: Ringers Lactate 1,000 ML IV SCH (07:22)
[2023-04-12] MEDS ORDERED: POTASSIUM CL SA 10 MEQ TAB PO ONE (08:00)
[2023-04-12] MEDS ORDERED: MAGNESIUM SULFATE 1 gm IVPB 1 GM/100 ML BAG IV ONE (08:00)
[2023-04-12] MEDS: GABAPENTIN 300 MG CAP PO SCH ×2 (08:32→13:51)
[2023-04-12] MEDS: SUCRALFATE 1 GM TABLET PO SCH ×4 (08:32→20:07)
[2023-04-12] MEDS: PANTOPRAZOLE 40 MG INJ IVP SCH ×2 (08:32→20:07)
[2023-04-12] MEDS: SIMETHICONE 80 MG TAB PO SCH ×3 (08:32→20:07)
[2023-04-12] MEDS: Rifaximin 550 MG Tab PO SCH ×2 (08:32→20:07)
[2023-04-12] MEDS: METOCLOPRAMIDE 10 MG/2mL INJ IV PRN (08:33)
[2023-04-12] MEDS: ENSURE HIGH PROTEIN 237 ML CAN PO SCH ×3 (08:34→20:07)
[2023-04-12] MEDS: LACTOBACILLUS/ACIDOPHILUS TAB PO SCH ×2 (10:13→20:07)
--- NOTE | 2023-04-12 13:00 | CON ---
Reason For Consultation: Consultation called because of intractable hiccups. History Of Present Illness: Mr. Cabral is a 37-year-old, right-handed patient with no significant past medical history who had dental extraction and implants done on April 05, 2023. Sin ce that time, he has had persistent hiccups every few seconds. It has been intractable to multiple m edications including Haldol, gabapentin, Reglan, baclofen, Zofran, [place], ketamine, Depakote. His br ain MRI revealed no acute ischemic or hemorrhagic stroke. He has had GI related medicines including Protonix in the emergency department, which did not help. He was seen by GI, Dr. Barroso and had EGD, and the study revealed the patient had significant esophagitis in the total circumference of the low er esophagus, in addition to trapped air in stomach which are likely contributing to the hiccups. Fo llowing the procedure, the hiccups resolved for about 4 hours, but the moment the patient ate, he had nausea, vomiting, and return of his hiccups which have been again continuous. The discussion about Botox use was entered with Dr. Lofton and the possibility will be discussed with Dr. Barroso to see if that is possible. The patient and his family are also considering having transferred to [place] for higher level of care where Botox may be more readily available and applied into the diaphragmatic reg ion to help ameliorate the chronic intractable hiccups. Past Medical History: There is no significant past medical history aside from dental extractions. Social History: Denies alcohol, tobacco, or IV drug use. Does drink caffeinated beverages. Family History: Diabetes in mother. Allergies: NO KNOWN DRUG ALLERGIES. Current Medications: Simethicone 30 mL every 6 hours, Benadryl 25 mg IV every 6 hours, gabapentin 30 0 mg 3 times daily, Haldol 2 mg IV every 6 hours, he has had hydration with Ringer's lactate at 50 mL an hour, Lactinex 1 twice daily, viscous lidocaine 15 mL every 6 hours, Reglan 10 mg every 6 hours, morphine 2 mg every 6 hours, Tylenol as needed, Ensure high protein 237 mL 3 times daily, Zofran 4 mg every 6 hours as needed, Protonix 40 mg IV every 12 hours, rifaximin 550 mg twice daily, simethicone 80 mg 3 times daily, Carafate 1 g at night. Review of Systems: He has no fevers, chills. Does have some nausea and vomiting on eating, and again little intractable hiccups. However, he has no focal weakness in the face, arm, leg. He denies any sensory disturbanc e, any coordination problems, psychiatric issues, any gastrointestinal issues such as constipation or any genitourinary issues. Physical Examination: Vital Signs: Blood pressure 111/55, pulse 80, respiratory rate 16, temperature 98.2, oxygen saturati on 98%. General: Mr. Cabral is resting in bed. He has continuous hiccups. HEENT: He is otherwise normocephalic, atraumatic. Sclerae anicteric. Oropharynx is moist. Neck: Supple. Chest: Clear. Heart: Regular. Extremities: Show no significant edema or cyanosis. Neurological: He is alert and oriented to situation, place, person. Follows commands appropriately. No cranial nerve deficits. Again intractable hiccups noted. No motor, coordination, gait, strengt h, or sensation deficits. Laboratory Data: Complete blood count with differential is normal. Basic metabolic panel all normal . Liver function studies are normal. Lipase elevated to 84. Albumin 3.0. He has had upper GI and pathology report that is pending. Chest, abdomen, and pelvis CT scan on the shows a wall of the distal esophagus appears thickened which may be secondary to incomplete distention or pathology such as inflammation. Assessment: Mr. Cabral is a 37-year-old patient with intractable hiccups, possibly due to significa nt esophagitis with trapped air as reported by Dr. Barroso. He has tried and failed about a dozen med ications and continues to have intractable hiccups. Plan: The patient may benefit from Botox. However, the expertise for that is not readily available at this hospital and may require transfer for higher level of care to [place] to be treated. Otherwi se, may continue current regimen of medications and may follow up in clinic once he is discharged abo ar a month later. CAITLYN/GERMAN Voice ID: [id number] Report ID: [id number]
[2023-04-12] MEDS ORDERED: ALPRAZOLAM 0.25 MG TABLET PO ONE (19:24)
[2023-04-13 04:40] LABS: Potassium 3.5 mEq/L (3.5-5.1)
[2023-04-13] MEDS ORDERED: POTASSIUM CL SA 10 MEQ TAB PO ONE (06:00)
[2023-04-13 06:06] VITALS: BMI 27.2
--- NOTE | 2023-04-13 07:08 | P.PN ---
Date of Service: 04/13/23 Subjective: Feeling much better this morning Hiccups are improving, able to talk full sentences without interruption no new / worsening problems ROS: 10 point ROS as noted above, otherwise negative Physical Exam: GEN: Alert, oriented, hiccups HEENT: Normal conjunctiva, sclera anicteric CV: Regular rate and rhythm, no edema Pulm: Nonlabored respirations on room air ABD: Soft, mild epigastric tenderness, nondistended Neuro: Normal speech, normal affect vitals reviewed Problem List: Intractable hiccups, dehydration Esophagitis Mild gastritis Hiatal Hernia GERD suspect intractable hiccups secondary to increased gas formation in stomach/intestines Does report 1 month of needing daily tums, CT noted distal esophageal thickening suspect component of esophagitis / GERD contributing GI consulted 04/10 EGD performed 04/11 - showed esophagitis, mild gastritis, and hiatal hernia. Dr. Barroso noted significant amount of bubbles/gas/air Continue simethicone, rifaxamin; reglan PRN; s/p golytely continue protonix, carafate Clear liquids improving transition haldol to thorazine 04/13 MRI brain 04/09 - negative for acute findings CT chest 04/09 - showed some distal esophageal thickening dc'd gabapentin, baclofen, depakote Reglan/Benadryl as needed Neurology/OMFS/GI following Code: Full Dispo: Home ~2 days
[2023-04-13] MEDS: SUCRALFATE 1 GM TABLET PO SCH ×4 (08:21→20:52)
[2023-04-13] MEDS: PANTOPRAZOLE 40 MG INJ IVP SCH ×2 (08:21→20:53)
[2023-04-13] MEDS: Rifaximin 550 MG Tab PO SCH ×2 (08:21→20:52)
[2023-04-13] MEDS: SIMETHICONE 80 MG TAB PO SCH ×3 (08:21→20:52)
[2023-04-13] MEDS: LACTOBACILLUS/ACIDOPHILUS TAB PO SCH ×2 (08:21→20:52)
[2023-04-13] MEDS: CHLORPROMAZINE 25 MG TAB PO SCH ×3 (08:25→20:52)
[2023-04-13] MEDS: ENSURE HIGH PROTEIN 237 ML CAN PO SCH ×3 (08:28→20:53)
[2023-04-13] MEDS: MAGNES/ALUMIN/SIMET 30ML UCUP PO PRN (15:38)
[2023-04-13] MEDS: LIDOCAINE VISCOUS 2% SOLN 15 ML UDC PO PRN (15:39)
[2023-04-13] MEDS: DIPHENHYDRAMINE 12.5MG/5ML LIQ PO PRN (15:39)
[2023-04-13] MEDS: METOCLOPRAMIDE 10 MG/2mL INJ IV PRN (16:31)
[2023-04-13] MEDS: DIPHENHYDRAMINE 50 MG/ML VIAL IV PRN (16:31)
[2023-04-14] MEDS ORDERED: MELATONIN 5 MG TABLET PO PRN ×2 (01:47→21:50)
[2023-04-14 04:41] LABS: Potassium 3.2 mEq/L (3.5-5.1)
[2023-04-14] MEDS ORDERED: POTASSIUM CL SA 10 MEQ TAB PO ONE ×2 (06:00→13:28)
--- NOTE | 2023-04-14 07:06 | P.PN ---
Date of Service: 04/14/23 Subjective: states pain about the same as yesterday hiccups remain; less forceful, slightly less frequent ~2 hours break yesterday without hiccups in the morning per family hiccups less severe when laying flat in bed; states hiccups are exacerbated by movement no new / worsening problems ROS: 10 point ROS as noted above, otherwise negative Physical Exam: GEN: Alert, oriented, hiccups HEENT: Normal conjunctiva, sclera anicteric CV: Regular rate and rhythm, no edema Pulm: Nonlabored respirations on room air ABD: Soft, mild epigastric tenderness, nondistended Neuro: Normal speech, normal affect vitals reviewed Problem List: Intractable hiccups, dehydration Esophagitis Mild gastritis Hiatal Hernia GERD suspect intractable hiccups secondary to increased gas formation in stomach/intestines Does report 1 month of needing daily tums, CT noted distal esophageal thickening suspect component of esophagitis / GERD contributing GI consulted 04/10 EGD performed 04/11 - showed esophagitis, mild gastritis, and hiatal hernia. Dr. Barroso noted significant amount of bubbles/gas/air Continue simethicone, rifaxamin; reglan PRN; s/p golytely continue protonix, carafate Clear liquids improving transitioned haldol to thorazine 04/13 MRI brain 04/09 - negative for acute findings CT chest 04/09 - showed some distal esophageal thickening dc'd gabapentin, baclofen, depakote Reglan/Benadryl as needed Neurology/OMFS/GI following convert meds to PO Code: Full Dispo: Home ~1-2 days, if tolerating PO / improvement with PO meds Pending further improvement, able to swap to PO meds
[2023-04-14] MEDS: Rifaximin 550 MG Tab PO SCH ×2 (08:15→20:36)
[2023-04-14] MEDS: SIMETHICONE 80 MG TAB PO SCH ×3 (08:15→20:36)
[2023-04-14] MEDS: PANTOPRAZOLE 40 MG INJ IVP SCH ×2 (08:15→20:37)
[2023-04-14] MEDS: SUCRALFATE 1 GM TABLET PO SCH ×4 (08:15→20:36)
[2023-04-14] MEDS: LACTOBACILLUS/ACIDOPHILUS TAB PO SCH ×2 (08:15→20:36)
[2023-04-14] MEDS: CHLORPROMAZINE 25 MG TAB PO SCH ×3 (08:15→20:37)
[2023-04-14] MEDS: ENSURE HIGH PROTEIN 237 ML CAN PO SCH ×3 (08:16→20:37)
[2023-04-14 08:58] VITALS: O2SAT 100
[2023-04-14 12:27] LABS: Potassium 3.8 mEq/L (3.5-5.1)
[2023-04-15 07:07] LABS: Magnesium 1.7 mg/dL (1.6-2.4); Phosphorus 2.7 mg/dL (2.5-4.9); Potassium 3.5 mEq/L (3.5-5.1)
--- NOTE | 2023-04-15 07:07 | P.PN ---
Date of Service: 04/15/23 Subjective: able to sleep well overnight; pain has decreased feels like he can get more words out in between hiccups today no new / worsening problems states eating/drinking doesnt exacerbate hiccups ROS: 10 point ROS as noted above, otherwise negative Physical Exam: GEN: Alert, oriented, hiccups HEENT: Normal conjunctiva, sclera anicteric CV: Regular rate and rhythm, no edema Pulm: Nonlabored respirations on room air ABD: Soft, minimal epigastric tenderness, nondistended Neuro: Normal speech, normal affect vitals reviewed Problem List: Intractable hiccups, dehydration Esophagitis Mild gastritis Hiatal Hernia GERD suspect intractable hiccups secondary to increased gas formation in stomach/intestines Does report 1 month of needing daily tums, CT noted distal esophageal thickening suspect component of esophagitis / GERD contributing GI consulted 04/10 EGD performed 04/11 - showed esophagitis, mild gastritis, and hiatal hernia. Dr. Barroso noted significant amount of bubbles/gas/air Continue simethicone, rifaxamin; reglan PRN; s/p elle concerned rifaxamin won't be covered by insurance; sent to pharmacy today, reportedly close to ~$700; reached out to GI for alternative reluctant to dc today, laxative today continue protonix, carafate Clear liquids, avoid dairy, avoid heavy protein / body building shakes/supplements improving transitioned haldol to thorazine 04/13 MRI brain 04/09 - negative for acute findings CT chest 04/09 - showed some distal esophageal thickening dc'd gabapentin, baclofen, depakote Reglan/Benadryl as needed Neurology/OMFS/GI following convert meds to PO Code: Full Dispo: Home ~days, if tolerating PO / improvement with PO meds Pending further improvement
[2023-04-15] MEDS: CHLORPROMAZINE 25 MG TAB PO SCH ×3 (07:50→21:50)
[2023-04-15] MEDS: SUCRALFATE 1 GM TABLET PO SCH ×4 (07:50→21:51)
[2023-04-15] MEDS: PANTOPRAZOLE 40MG TABLET PO SCH ×2 (07:51→16:47)
[2023-04-15] MEDS: SIMETHICONE 80 MG TAB PO SCH ×3 (07:51→21:50)
[2023-04-15] MEDS: LACTOBACILLUS/ACIDOPHILUS TAB PO SCH ×2 (07:51→21:00)
[2023-04-15] MEDS: ENSURE HIGH PROTEIN 237 ML CAN PO SCH (07:52)
[2023-04-15] MEDS: Rifaximin 550 MG Tab PO SCH ×2 (08:49→21:50)
[2023-04-15] MEDS ORDERED: POTASSIUM CL SA 10 MEQ TAB PO ONE (09:00)
--- NOTE | 2023-04-15 11:45 | EKG ---
Test Date: 2023-04-13 Test Time: 15:46:29 Hadoop Analyst: MANISH MEASUREMENT RESULTS: Intervals: Rate: 85 CA: 140 QRSD: 108 QT: 360 QTc: 428 [place]: P: 92 CA: 140 QRS: 96 T: -10 INTERPRETIVE STATEMENTS: Suspect arm lead reversal, interpretation assumes no reversal Normal sinus rhythm with sinus arrhythmia Rightward axis Voltage criteria for left ventricular hypertrophy ST & T wave abnormality, consider inferior ischemia Abnormal ECG No previous ECG available for comparison Electronically Signed On 04-15-23 11:41:49 CDT by Ignacio Wiggins
--- NOTE | 2023-04-15 11:45 | EKG ---
Test Date: 2023-04-13 Test Time: 15:47:30 Rn Pain Management: MANISH MEASUREMENT RESULTS: Intervals: Rate: 74 UT: 146 QRSD: 96 QT: 380 QTc: 421 [place]: P: 89 UT: 146 QRS: 97 T: 16 INTERPRETIVE STATEMENTS: Normal sinus rhythm with sinus arrhythmia Rightward axis Voltage criteria for left ventricular hypertrophy ST elevation, consider early repolarization, pericarditis, or injury ST & T wave abnormality, consider inferior ischemia Abnormal ECG No previous ECG available for comparison Electronically Signed On 04-15-23 11:41:48 CDT by Ignacio Wiggins
[2023-04-15] MEDS: ENSURE CLEAR 200 ML CAN PO SCH ×2 (13:48→21:00)
[2023-04-15] MEDS ORDERED: GOLYTELY 4000 ML PO ONE (17:00)
[2023-04-15] MEDS ORDERED: MAGNESIUM CITRATE 300 ML BOT PO SCH (17:00)
[2023-04-15] MEDS ORDERED: ALPRAZOLAM 0.25 MG TABLET PO PRN (20:57)
--- NOTE | 2023-04-15 22:32 | P.PN ---
Subjective Date of Service: 04/15/23 Chief Complaint: Intractable hiccups, dehydration Subjective: Improving (Sitting in chair, playing dominoes with father. Less hiccups and less debilitating. Tolerating some p.o. intake. Just drank an Ensure with corn syrup, sugar, and whey.) Review of Systems 10-point ROS is otherwise unremarkable General: Weakness (Improved.), Malaise (Improved.) Gastrointestinal: Other (Hiccups Improved.) Physical Examination - Vital Signs Temperature: 97.6 F Blood Pressure: 135/83 Pulse: 75 Respirations: 17 Pulse Ox (%): 100 - Physical Exam General: Alert, In no apparent distress, Oriented x3, Cooperative HEENT: Atraumatic, Normocephalic, PERRLA, EOMI Neck: Supple Respiratory: Normal air movement Cardiovascular: Normal pulses Gastrointestinal: Soft and benign, No tenderness, No rebound, No guarding Neurological: Normal speech, Normal strength at 5/5 x4 extr Assessment And Plan - Current Problems (Diagnosis) (1) Intractable hiccups Current Visit: Yes Status: Acute - Plan REC: 1) Xifaxan 550 mg po tid for 2 weeks 2) Gas-X bid 3) diary-free diet and no beans / cruciferous vegetables 4) Align Probiotics qd 5) avoid artificial sweetners 6) Thorazine tid 7) Avoid protein (body building) drinks
[2023-04-16 06:27] LABS: MCV 87.4 fL (80-100); MPV 8.3 fL (7.6-11.3); RBC Red Blood Cell Count 4.81 M/uL (4.33-5.43)
[2023-04-16 06:38] LABS: Magnesium 1.7 mg/dL (1.6-2.4); Potassium 3.8 mEq/L (3.5-5.1)
[2023-04-16] MEDS: ENSURE CLEAR 200 ML CAN PO SCH (07:38)
[2023-04-16] MEDS ORDERED: POTASSIUM CL SA 10 MEQ TAB PO ONE (07:42)
[2023-04-16] MEDS: SUCRALFATE 1 GM TABLET PO SCH (08:16)
[2023-04-16] MEDS: SIMETHICONE 80 MG TAB PO SCH (08:16)
[2023-04-16] MEDS: PANTOPRAZOLE 40MG TABLET PO SCH (08:16)
[2023-04-16] MEDS: LACTOBACILLUS/ACIDOPHILUS TAB PO SCH (08:17)
[2023-04-16] MEDS: CHLORPROMAZINE 25 MG TAB PO SCH (08:17)
[2023-04-16 09:00] VITALS: BP 123/78; TEMP 97.9
--- NOTE | 2023-04-16 09:22 | P.DS ---
Admission Date: 04/11/23 Discharge Date: 04/16/23 Disposition: ROUTINE DISCHARGE Reason for Admission: Intractable hiccups, dehydration Brief History of Present Illness: 37-year-old male who is otherwise healthy had a dental extraction left lower tooth #16 and implant 4 days ago and since then developed persistent hiccups every few seconds, 4 separate ED visits and treated with medications include Thorazine, Haldol, gabapentin, Reglan, baclofen, Zofran, [place], ketamine without relief. CT chest abdomen pelvis was performed to rule out any other acute causes of his intractable hiccups which showed some thickening of the distal esophagus which may be secondary to incomplete distention or pathology such as inflammation. He was given a GI cocktail as well as Protonix in the ED. Case was discussed with neurology during his visit earlier in the day at that time he had an MRI of his brain which was negative for acute findings. Patient unable to tolerate anything by mouth due to vomiting. Patient was hospitalized for further management of intractable hiccups. Hospital Course: Diagnosis Intractable hiccups, dehydration Esophagitis Mild gastritis Hiatal Hernia GERD Patient admitted to the medical floor and started on supportive measures including IV Protonix and sucralfate. GI consulted, patient was seen by Dr. Barroso who performed endoscopy which revealed esophagitis, mild gastritis and hiatal hernia, significant amount of gas in the stomach also noted. Case discussed with neurology-Dr. Wen. Intractable hiccups likely secondary to esophagitis/gastritis. Patient report 1 month of heart brain which he was treating with tums daily, CT noted distal esophageal thickening Patient also treated with simethicone, rifaxamin; reglan PRN; s/p golytely per GI recommendation. Patient eventually tolerated liquid diet. Abdominal bloating from bacterial overgrowth not ruled out. GI recommended patient to avoid dairy, avoid heavy protein / body building shakes/supplements Patient initially treated with Thorazine as inpatient. Neurology recommended baclofen which has less side effects MRI brain 04/09 - negative for acute findings Frequency of hiccups of reduced and patient now tolerating diet. He request to go home. Vital Signs/Physical Exam: Temp Pulse Resp BP Pulse Ox 97.9 F 97 H 17 123/78 100 04/16/23 08:00 04/16/23 08:00 04/16/23 08:00 04/16/23 08:00 04/16/23 08:00 General: Alert, In no apparent distress, Oriented x3 HEENT: Mucous membr. moist/pink Neck: JVD not distended Respiratory: Clear to auscultation bilaterally, Normal air movement Cardiovascular: No edema, Regular rate/rhythm, Normal S1 S2 Gastrointestinal: Normal bowel sounds, Soft and benign, Non-distended Musculoskeletal: No swelling Integumentary: No rashes, No cyanosis Neurological: Normal strength at 5/5 x4 extr Laboratory Data at Discharge: WBC 5.90 thou/uL (4.3-10.9) 04/16/23 05:37 Hgb 13.9 g/dL (13.6-17.9) 04/16/23 05:37 Hct 42.0 % (39.6-49.0) 04/16/23 05:37 Plt Count 290 thou/uL (152-406) 04/16/23 05:37 Sodium 136 mEq/L (136-145) 04/16/23 05:37 Potassium 3.8 mEq/L (3.5-5.1) 04/16/23 05:37 BUN 9 mg/dL (7-18) 04/16/23 05:37 Creatinine 1.07 mg/dL (0.70-1.30) 04/16/23 05:37 Glucose 84 mg/dL (74-106) 04/16/23 05:37 Phosphorus 2.7 mg/dL (2.5-4.9) 04/15/23 06:31 Magnesium 1.7 mg/dL (1.6-2.4) 04/16/23 05:37 Total Bilirubin 0.5 mg/dL (0.2-1.0) 04/12/23 04:08 AST 27 U/L (15-37) 04/12/23 04:08 ALT 47 U/L (16-61) 04/12/23 04:08 Alkaline Phosphatase 46 U/L (45-117) 04/12/23 04:08 Lipase 69 U/L (13-75) 04/13/23 03:33 Home Medications: Baclofen 10 mg PO TID #180 tab 04/16/23 Metoclopramide HCl [Reglan] 10 mg PO TID #90 tab 04/16/23 Pantoprazole [Protonix Tab*] 40 mg PO BIDAC #60 tab 04/16/23 Rifaximin [Xifaxan] 550 mg PO TID #90 tab 04/16/23 Simethicone [Mylicon*] 80 mg PO TID #90 tab 04/16/23 Sucralfate [Carafate*] 1 gm PO ACHS #90 tab 04/16/23 New Medications: Baclofen 10 mg PO TID #180 tab Sucralfate [Carafate*] 1 gm PO ACHS #90 tab Simethicone [Mylicon*] 80 mg PO TID #90 tab Pantoprazole [Protonix Tab*] 40 mg PO BIDAC #60 tab Metoclopramide HCl [Reglan] 10 mg PO TID #90 tab Rifaximin [Xifaxan] 550 mg PO TID #90 tab Followup: Tobin Barroso MD [ASSOCIATE-ACTIVE - CAN ADMIT] - 1-2 Weeks Unknown,U [Primary Care Provider] - Time spent managing pt's care (in minutes): 40
[2023-04-16] MEDS: Rifaximin 550 MG Tab PO SCH (09:33)
== END 2023-04-16 10:55 | disposition home or self-care (01) | DRG 391 ==
LOC: ER 15:30 → ERHOLD 18:54 → 4TH 19:59 → OBSVTOIN 04-11 13:13
PROVIDERS: ADMIT Hospitalist; ATTEND Internal Medicine
PROC: 0DB78ZX Excision of Stomach, Pylorus, Via Natural or Artificial Opening Endoscopic, Diagnostic (ICD-10-PCS; 2023-04-11)
PROC: 0DB68ZX Excision of Stomach, Via Natural or Artificial Opening Endoscopic, Diagnostic (ICD-10-PCS; principal; 2023-04-11 12:00)
DX: K29.00 Acute gastritis without bleeding (principal); K21.01 Gastro-esophageal reflux disease with esophagitis, with bleeding; E86.0 Dehydration; K44.9 Diaphragmatic hernia without obstruction or gangrene; Z96.5 Presence of tooth-root and mandibular implants; Z79.899 Other long term (current) drug therapy
CPT/HCPCS: 36415; 71260; 74177; 80048; 80053; 80076; 83690; 83735; 84100; 85025; 85027; 88305; 88312; 93005; 96372; 99285; C9113; G0378; J1200; J1630; J2001; J2270; J2405; J2704; J2765; J3475; J7030; J7120; Q0161; Q0163; Q9967